=== PATIENT | female | born 1955 | race American Indian/Alaskan Native ===

== ENCOUNTER 2021-05-24 06:30 | Day surgery (SDC) | payer OTHER, MEDICARE ==
[~2021-05-24] VITALS: Ht 160 cm; Wt 93.6 kg
[~2021-05-24 06:30] MED LIST: DIALYVITE V5000 UNIT PO; ESTRADIOL2 MG PO; HYDROCODON-ACE1 EA10 PO; LISINOPRIL5 MG PO; NORCO 5-325 TA1 EACH PO; ZOFRAN4 MG PO; bp med
[2021-05-24] MEDS ORDERED: METFORMIN HCL500 MG PO (06:45)
[2021-05-24] MEDS ORDERED: ATORVASTATIN CA10 MG PO (06:46)
[2021-05-24] MEDS ORDERED: VITAMIN D-40010 MCG PO (06:46)
[2021-05-24] MEDS ORDERED: ADULT LOW DOSE81 MG PO (06:47)
--- NOTE | 2021-05-24 08:00 | NUR ---
05/24/21 0800 Jasmin Gregory 0026-PATIENT ARRIVED TO PACU ON 2L NC RR EVEN. PATIENT LAYING LEFT LATERAL ABDOMEN SOFT AROUSES TO VERBAL STIMULI REMAINS VERY DROWSY IMMEDIATELY FALLS BACK ASLEEP. IVF INFUSING.
--- NOTE | 2021-05-24 09:04 | NUR ---
PT SLEEPY VS STABLE.
--- NOTE | 2021-05-24 09:19 | OR ---
[facility] [address], [place] [address] Signed DATE OF OPERATION: 05/24/2021 SURGEON: Xiang Jackson MD PREOPERATIVE DIAGNOSES: 1. Hyperplastic polyps in 2009. 2. Diverticulosis on CT scan in 2014. 3. Guaiac-positive stool. POSTOPERATIVE DIAGNOSES: 1. 3 mm polyps x3 at 15 cm/rectum. 2. Minimal to moderate sigmoid diverticulosis. 3. Redundant fold at 25 cm/sigmoid colon. 4. Minimal internal and external hemorrhoids. PROCEDURE: Colonoscopy with hot biopsy. ESTIMATED BLOOD LOSS: None. INDICATIONS: Nirmal is a 66-year-old diabetic female, asked to see me for followup colonoscopy. I performed her colonoscopy in 2009 for screening purposes. She had hyperplastic polyps at that time. She did well with Versed and fentanyl. In 2014, she had a CT scan which showed incidental diverticulosis. She has never had any diverticular symptoms. She has no lower GI complaints. There is no family history of colon cancer or polyps. Her recent fecal occult blood test came back positive. However, she has not seen any blood in the stool or black tarry stool. In the office, I gave Nirmal a pamphlet on colonoscopy. She understands the nature of the test along with the risk including, but not limited to gas bloating, crampy abdominal pain, bleeding, perforation requiring surgery and missed diagnosis. She also recalls the need for IV conscious sedation. She had expressed understanding and wished to proceed. PROCEDURE NOTE: Nirmal was taken into our endoscopy suite and placed in the left lateral decubitus position. She was given IV sedation with 7 mg of Versed and 100 mcg of fentanyl to cover the case. A digital rectal exam was performed and she has just small external hemorrhoids. She has good sphincter tone. There were no masses. The adult colonoscope was then introduced and advanced all around into the cecum under direct visualization of Electronically Signed By: XIANG JACKSON MD 05/24/21 0919 PATIENT NAME: NIRMAL BARLOW OPERATIVE REPORT DATE OF : 55 REPORT #: [id number] PHYSICIAN: XIANG JACKSON MD PCP: KENYETTA CANTRELL MD REPORT IS CONFIDENTIAL AND NOT TO BE RELEASED WITHOUT AUTHORIZATION [facility] [address], [place] [address] Signed the camera without difficulty. She took a little extra sedation and abdominal compression in order to advance the scope. Her prep was quite good. We could easily see the appendiceal orifice and ileocecal valve. The scope was then slowly withdrawn. We could see the diverticula in her sigmoid colon. They are moderate in size, but few in number and scattered about. She had a redundant fold in the distal sigmoid colon, probably from scope trauma. We went ahead and took a biopsy of that fold. Also, she had several tiny hyperplastic appearing polyps in her rectum. They were easily removed with the help of hot biopsy forceps. Upon retroflexion of the scope, we could easily see minimal internal hemorrhoid columns as well. After this, the gas was suctioned out and the colonoscope removed. Nirmal tolerated the procedure quite well. RECOMMENDATIONS: I will see Nirmal back in my office in 7 to 14 days to review her results. Xiang Jackson MD ALB/MODL /[id number] cc: Xiang Jackson MD [facility] Copies: XIANG JACKSON MD ~ Electronically Signed By: XIANG JACKSON MD 05/24/21 0919 PATIENT NAME: NIRMAL BARLOW OPERATIVE REPORT DATE OF : 55 REPORT #: [id number] PHYSICIAN: XIANG JACKSON MD PCP: KENYETTA CANTRELL MD REPORT IS CONFIDENTIAL AND NOT TO BE RELEASED WITHOUT AUTHORIZATION
--- NOTE | 2021-05-24 10:41 | NUR ---
PT ALERT, ORIENTED AND HER KIDS WILL PICK HER UP FOLLOWING DC. PT HAS HAD SCOPES BEFORE. ALL QUESTIONS ASKED ANSWERED. GAVE GENOING, WILL FOLLOW
== END 2021-05-24 10:10 | disposition home or self-care (01) ==
LOC: OPS 06:30 → DS 06:30 → OPS 07:30 → DS 07:30 → OPS 10:10
PROVIDERS: ATTEND Colon & Rectal Surgery
PROC: 0DBN8ZZ Excision of Sigmoid Colon, Via Natural or Artificial Opening Endoscopic (ICD-10-PCS; 2021-05-24)
PROC: 0DBP8ZZ Excision of Rectum, Via Natural or Artificial Opening Endoscopic (ICD-10-PCS; principal; 2021-05-24 07:30)
DX: D12.8 Benign neoplasm of rectum (principal); K57.30 Diverticulosis of large intestine without perforation or abscess without bleeding; K64.8 Other hemorrhoids; K64.4 Residual hemorrhoidal skin tags; I10 Essential (primary) hypertension; E11.9 Type 2 diabetes mellitus without complications
CPT/HCPCS: 99153; G0500; J2250; J3010; J7121